=== PATIENT | male | born 1985 | race Caucasian/White ===

== ENCOUNTER 2018-01-23 19:52 | Emergency (ER) | payer MEDICAID ==
[~2018-01-23] VITALS: Ht 175.3 cm; Wt 80.7 kg
[~2018-01-23 19:52] MED LIST: ALBU90I INH; AMOCLA875 PO; AMOX500 PO; AZIT250 PO; CYCL10 PO; IBUP600 PO; PROM25 PO
[2018-01-23] MEDS ORDERED: CYCL10 PO (20:29)
== END 2018-01-23 20:58 | disposition home or self-care (01) ==
LOC: ER 19:52
DX: M54.5 Low back pain (principal)
CPT/HCPCS: 96372; 99283; J1885

== ENCOUNTER 2018-04-18 19:41 | Emergency (ER) | payer MEDICAID ==
[~2018-04-18] VITALS: Ht 177.8 cm; Wt 79.4 kg
[2018-04-18 20:57] LABS: Source, Urine Clean Catch
[2018-04-18 21:01] LABS: Appearance, Urine Cloudy (Clear); Bilirubin, Urine Neg (Neg); Blood, Urine 2+ (Neg); Color, Urine Yellow (P-Yellow); Glucose Qualitative, Urine Neg (Neg); Ketones, Urine 1+ (Neg); Leukocyte Esterase, Urine 3+ (Neg); Nitrite, Urine Neg (Neg); Protein, Urine 2+ (Neg); Specific Gravity, Urine 1.015 (1.003-1.022); Urobilinogen, Urine 3+ (Normal)
[2018-04-18 21:07] LABS: Amorphous Light (0-Heavy); Bacteria Many /hpf; Mucus Light (0-Heavy); Red Blood Cells, Urine 0-2 /hpf (0-2); Squamous Epithelial Cells Not Seen /hpf (Few); White Blood Cells, Urine TNTC /hpf (0-5)
== END 2018-04-18 22:05 | disposition home or self-care (01) ==
LOC: ER 19:41
PROVIDERS: Emergency Medicine
DX: R30.0 Dysuria (principal); R36.9 Urethral discharge, unspecified
CPT/HCPCS: 81001; 87086; 96372; 99283-25; J0696

== ENCOUNTER 2019-03-17 20:00 | Emergency (ER) | payer BC ==
[~2019-03-17] VITALS: Ht 177.8 cm; Wt 83.9 kg
[~2019-03-17 20:00] MED LIST changes: +PRAHYD1AE TOP
[2019-03-17] MEDS ORDERED: IBUP800 PO (21:02)
[2019-03-17] MEDS ORDERED: CYCL10 PO (21:02)
[2019-03-17] MEDS ORDERED: LIDO700A20 TOP (21:02)
== END 2019-03-17 21:30 | disposition home or self-care (01) ==
LOC: ER 20:00
DX: M43.6 Torticollis (principal)
CPT/HCPCS: 96372; 99283-25; J1885

== ENCOUNTER 2020-03-31 20:25 | Emergency (ER) | payer BC ==
[~2020-03-31] VITALS: Ht 177.8 cm; Wt 85.7 kg
[~2020-03-31 20:25] MED LIST changes: +IBUP800 PO; +LIDO700A20 TOP
== END 2020-03-31 21:26 | disposition home or self-care (01) ==
LOC: ER 20:25
DX: B34.9 Viral infection, unspecified (principal); I10 Essential (primary) hypertension
CPT/HCPCS: 99283

== ENCOUNTER 2024-02-13 19:43 | Emergency (ER) | payer OTHER ==
[~2024-02-13] VITALS: Ht 175.3 cm; Wt 81.7 kg
[2024-02-13 20:21] VITALS: BP 169/108
== END 2024-02-13 20:28 | disposition home or self-care (01) ==
LOC: ER 19:43
DX: S86.111A Strain of other muscle(s) and tendon(s) of posterior muscle group at lower leg level, right leg, initial encounter (principal); I10 Essential (primary) hypertension; X50.0XXA Overexertion from strenuous movement or load, initial encounter; Y93.61 Activity, american tackle football
CPT/HCPCS: 99283

== ENCOUNTER 2024-12-18 22:52 | Emergency (ER) | payer SELFPAY ==
[~2024-12-18] VITALS: Ht 175.3 cm; Wt 90.7 kg
[2024-12-18] MEDS ORDERED: Ketorolac Tromethamine 15mg Vial IV ONE (23:10)
[2024-12-18 23:59] LABS: BASOPHILS ABSOLUTE AUTO 0.04 K/mm3 (0.00-0.23); BASOPHILS PERCENT AUTO 0 % (0-2); EOSINOPHILS ABSOLUTE AUTO 0.13 K/mm3 (0.00-0.68); EOSINOPHILS PERCENT AUTO 2 % (0-6); Hematocrit 44.7 % (37.0-53.0); Hemoglobin 15.5 g/dL (13.5-17.5); IMMATURE GRAN ABSOLUTE AUTO 0.03 K/mm3 (0.00-0.10); IMMATURE GRAN PERCENT AUTO 0 % (0-1); LYMPHOCYTES ABSOLUTE AUTO 3.17 K/mm3 (0.84-5.20); LYMPHOCYTES PERCENT AUTO 36 % (21-46); MONOCYTES ABSOLUTE AUTO 0.56 K/mm3 (0.16-1.47); MONOCYTES PERCENT AUTO 6 % (4-13); Mean Corpuscular HGB Conc 34.7 g/dL (31.5-36.5); Mean Corpuscular Volume 88 fL (80-100); NEUTROPHILS ABSOLUTE AUTO 5.01 K/mm3 (1.96-9.15); NEUTROPHILS PERCENT AUTO 56 % (41-73); NRBC ABSOLUTE 0.00 K/mm3 (0.00-0.02); NRBC Auto 0.0 /100 WBC (0.0-0.2); Platelet Count 316 K/mm3 (150-400); RDW Coefficient Variation 12.4 % (11.7-14.2); RDW Standard Deviation 39.8 fL (35.1-46.3)
[2024-12-19 00:21] LABS: Alanine Aminotransfer (ALT/SGP 37.0 U/L (12-78); Albumin, Blood 4.1 g/dL (3.4-5.0); Albumin/Globulin Ratio 1.2 (0.8-1.8); Anion Gap 8.0 mmol/L (3-11); Aspartate Aminotrans (AST/SGOT 23.0 U/L (12-37); Bilirubin, Total 0.8 mg/dL (0.1-1.0); Blood Urea Nitrogen 11.0 mg/dL (8-24); CO2, Blood 29.0 mmol/L (21-32); Calcium, Blood 8.5 mg/dL (8.5-10.1); Chloride, Blood 104.0 mmol/L (98-108); Creatinine, Blood 1.13 mg/dL (0.60-1.20); Globulin, Blood 3.3 g/dL (2.2-4.0); Glucose, Blood 115.0 mg/dL (70-99); Potassium, Blood 3.7 mmol/L (3.5-5.5); Sodium, Blood 137.0 mmol/L (136-145); Total Protein, Blood 7.4 g/dL (6.4-8.2)
[2024-12-19 01:20] LABS: Source, Urine Clean Catch
[2024-12-19 01:24] LABS: Bilirubin, Urine Neg (Neg); Glucose Qualitative, Urine Neg (Neg); Ketones, Urine Neg (Neg); Leukocyte Esterase, Urine Neg (Neg); Protein, Urine 2+ (Neg); Specific Gravity, Urine 1.020 (1.003-1.022); Urobilinogen, Urine NORM (Normal)
[2024-12-19 01:46] LABS: Color, Urine Amber (P-Yellow)
[2024-12-19 01:48] LABS: Red Blood Cells, Urine 50-100 /hpf (0-2); White Blood Cells, Urine 0-2 /hpf (0-5)
[2024-12-19 02:04] VITALS: BP 116/70
== END 2024-12-19 02:07 | disposition home or self-care (01) ==
LOC: ER 22:52
PROVIDERS: Student in an Organized Health Care Education/Training Program
DX: K40.90 Unilateral inguinal hernia, without obstruction or gangrene, not specified as recurrent (principal); I10 Essential (primary) hypertension; Z59.89 Other problems related to housing and economic circumstances
CPT/HCPCS: 76857; 80053; 81001; 85025; 96374; 99283-25; J1885